=== PATIENT | female | born 1995 | race African-American/Black ===

== ENCOUNTER 2017-06-18 17:23 | Emergency (ER) | payer MEDICAID ==
[~2017-06-18] VITALS: Ht 180.3 cm; Wt 86.2 kg
[2017-06-19] MEDS ORDERED: SODIUM CHLORIDE 0.9% 1,000 ML IV ONE (00:25)
[2017-06-19] MEDS ORDERED: ONDANSETRON HCL 4MG/2ML VIAL IV ONE (00:30)
[2017-06-19] MEDS ORDERED: KETOROLAC 30MG/ML VIAL IV ONE (00:30)
[2017-06-19] MEDS ORDERED: KETOROLAC 30MG/ML VIAL IV NR (00:45)
[2017-06-19] MEDS ORDERED: ONDANSETRON HCL 4MG/2ML VIAL IV NR (00:45)
[2017-06-19 00:55] LABS: CHLORIDE 108 mEq/L (98-107)
[2017-06-19 00:56] LABS: BASOPHILS % 0.8 % (0.0-2.0); EOSINOPHILS % 3.9 % (0.0-5.0); HEMATOCRIT. 36.5 % (36.0-48.0); HEMOGLOBIN. 11.7 g/dL (12.0-16.0); LYMPHOCYTES % 32.1 % (20.0-50.0); MEAN CORPUSCULAR HEMOGLOBIN 26.2 pg (28.0-32.0); MEAN CORPUSCULAR VOLUME 81.7 fL (81.0-99.0); MEAN PLATELET VOLUME 11.2 fl (7.4-10.4); MONOCYTES % 8.5 % (2.0-8.0); NEUTROPHILS % 54.7 % (40.0-76.0); PLATELET 141 x1000/uL (130-400); RED BLOOD CELL COUNT 4.47 mill/uL (4.2-5.4); RED CELL DISTRIBUTION WIDTH 17.2 % (11.6-14.6)
[2017-06-19 01:06] LABS: B-HCG QUANTITATIVE < 1 mIU/mL (<3); CARBON DIOXIDE 28 mEq/L (21-32)
[2017-06-19 01:19] LABS: CLARITY URINE CLEAR (CLEAR); COLOR URINE YELLOW (YELLOW); GLUCOSE URINE NEGATIVE (NEGATIVE); KETONES URINE TRACE (NEGATIVE); LEUKOCYTE ESTERASE URINE NEGATIVE (NEGATIVE); NITRITE URINE NEGATIVE (NEGATIVE); OCCULT BLOOD URINE 2+ (NEGATIVE); PROTEIN URINE NEGATIVE (NEGATIVE); SPECIFIC GRAVITY URINE 1.025 (1.005-1.030)
[2017-06-19 02:24] VITALS: BP 108/66
== END 2017-06-19 03:40 | disposition home or self-care (01) ==
LOC: ER 19:08
DX: O90.89 Other complications of the puerperium, not elsewhere classified (principal); N94.6 Dysmenorrhea, unspecified
CPT/HCPCS: 36415; 76856; 80053; 81001; 81025; 84702; 85025; 86850; 86900; 86901; 96361; 96374; 96375; 99285; J1885; J2405; J7030; Z7610

== ENCOUNTER 2021-12-17 21:50 | Emergency (ER) | payer MEDICAID ==
[~2021-12-17] VITALS: Ht 180.3 cm; Wt 106.5 kg
[2021-12-17 22:45] VITALS: BP 136/73
[2021-12-18] MEDS ORDERED: ONDANSETRON 4MG ODT PO STA (02:50)
[2021-12-18 03:10] LABS: CLARITY URINE CLEAR (CLEAR); COLOR URINE YELLOW (YELLOW); KETONES URINE NEGATIVE (NEGATIVE); LEUKOCYTE ESTERASE URINE NEGATIVE (NEGATIVE); NITRITE URINE NEGATIVE (NEGATIVE); OCCULT BLOOD URINE NEGATIVE (NEGATIVE); PH URINE 7.5 (4.5-8.0); PROTEIN URINE NEGATIVE (NEGATIVE); SPECIFIC GRAVITY URINE 1.022 (1.005-1.030)
[2021-12-18 03:14] LABS: BASOPHILS % 0.7 % (0.0-2.0); EOSINOPHILS % 2.5 % (0.0-5.0); HEMATOCRIT. 35.8 % (36.0-48.0); HEMOGLOBIN. 11.7 g/dL (12.0-16.0); LYMPHOCYTES % 24.2 % (20.0-50.0); MEAN CORPUSCULAR HEMOGLOBIN 27.1 pg (28.0-32.0); MEAN CORPUSCULAR VOLUME 82.7 fL (81.0-99.0); MEAN PLATELET VOLUME 11.1 fl (7.4-10.4); MONOCYTES % 8.5 % (2.0-8.0); NEUTROPHILS % 64.1 % (40.0-76.0); PLATELET 200 x1000/uL (130-400); RED BLOOD CELL COUNT 4.33 mill/uL (4.2-5.4); RED CELL DISTRIBUTION WIDTH 13.6 % (11.6-14.6)
[2021-12-18 03:22] LABS: CHLORIDE 106 mEq/L (98-107)
[2021-12-18 03:24] LABS: HCG SCREEN NEGATIVE
== END 2021-12-18 06:40 | disposition home or self-care (01) ==
LOC: ER 21:50
DX: M62.81 Muscle weakness (generalized) (principal)
CPT/HCPCS: 36415; 80053; 81003; 83690; 84703; 85025; 99283; Q0162

== ENCOUNTER 2022-07-17 12:36 | Emergency (ER) | payer MEDICAID ==
[~2022-07-17] VITALS: Ht 180.3 cm; Wt 100.0 kg
[2022-07-17] MEDS ORDERED: IBUPROFEN 600MG TABLET PO ONE (15:45)
[2022-07-17 16:02] VITALS: BP 138/86
== END 2022-07-17 16:52 | disposition home or self-care (01) ==
LOC: ER 12:36
DX: S83.8X1A Sprain of other specified parts of right knee, initial encounter (principal); X50.1XXA Overexertion from prolonged static or awkward postures, initial encounter; Y93.89 Activity, other specified; Y92.013 Bedroom of single-family (private) house as the place of occurrence of the external cause
CPT/HCPCS: 73560; 99283